=== PATIENT | female | born 1940 | race Caucasian/White ===

== ENCOUNTER → 2017-08-05 | Outpatient (CLI) | payer MEDICARE, MEDICAID | LOC: BICMAMMO 10:38 | PROVIDERS: ATTEND Obstetrics & Gynecology | DX: Z12.31 Encounter for screening mammogram for malignant neoplasm of breast (principal) | CPT/HCPCS: 77063; G0202; 77067 ==

== ENCOUNTER 2017-12-04 12:38 | Emergency (ER) | payer MEDICARE, MEDICAID ==
[2017-12-04] MEDS ORDERED: Labetalol HCl 100 MG/20 ML VIAL ONE (13:02)
[2017-12-04 13:15] LABS: #Basophils 0.1 thou/uL (0.0-0.2); #Eosinphils 0.3 thou/uL (0.0-0.7); #Monocytes 0.6 thou/uL (0.11-0.59); #Neutrophils 3.9 thou/uL (1.40-6.50); %Basophils 1.2 % (0.0-1.0); %Eosinophils 4.2 % (0.0-10.0); %Lymphocytes 38.4 % (21.0-51.0); %Monocytes 7.5 % (0.0-10.0); %Neutrophils 48.9 % (42.0-75.0); Mean Corpuscular HGB CONC 34.1 g/dL (32.0-36.0); Mean Platelet Volume 8.9 fL (7.4-10.4); Platelet Count 227 thou/uL (130-400); RBC Distribution Width 12.3 % (11.5-14.5); Red Blood Cell (RBC) Count 4.82 mill/uL (4.20-5.40); White Blood Cell (WBC) Count 7.9 thou/uL (4.8-10.8)
[2017-12-04 13:20] LABS: Prothrombin Time 13.4 SEC (12.0-14.7)
[2017-12-04 13:36] LABS: Anion Gap 15 mmol/L (10-20); BUN (Urea Nitrogen) 14 mg/dL (9.8-20.1); Calc. Creatinine Clearance 0 mL/min (70-130); Calcium 9.8 mg/dL (7.8-10.44); Carbon Dioxide 23 mmol/L (23-31); Chloride 103 mmol/L (98-107); Estimated GFR-MDRD 57; Glucose 110 mg/dL (83-110); Potassium 4.1 mmol/L (3.5-5.1); Sodium 137 mmol/L (136-145)
[2017-12-04 13:41] LABS: CKMB 0.6 ng/mL (0-6.6); Troponin I Less than 0.010 ng/mL (< 0.028)
--- NOTE | 2017-12-04 13:52 | RAD ---
CHEST 1 VIEW: Date: 12/04/17 HISTORY: 76-year-old female with hypertension, right-sided facial tingling. COMPARISON: 07/26/13. FINDINGS: Heart size is normal. Old granuloma calcifications are noted and are stable. No confluent pneumonia, overt edema, or pleural effusion. IMPRESSION: Old granulomatous disease. Stable appearing chest from prior study. No acute process. POS: C
--- NOTE | 2018-01-13 14:24 | EKG ---
Test Reason : Blood Pressure : / mmHG Vent. Rate : 087 BPM Atrial Rate : 087 BPM P-R Int : 180 ms QRS Dur : 078 ms QT Int : 368 ms P-R-T Axes : 028 017 040 degrees QTc Int : 442 ms Poor data quality, interpretation may be adversely affected Normal sinus rhythm Normal ECG Confirmed by ROBLES MENDOZA, PILO ([id number]), city editor TYREE YAN ([id number] on 01/13/2018 2:23:46 PM Referred By: Confirmed By:PILO ARBOLEDA MD
== END 2017-12-04 14:25 | disposition home or self-care (01) ==
LOC: ERS 12:38
DX: I16.0 Hypertensive urgency (principal); E03.9 Hypothyroidism, unspecified; I10 Essential (primary) hypertension; Z79.899 Other long term (current) drug therapy
CPT/HCPCS: 71045; 80048; 82553; 84484; 85025; 85610; 93005; 96374

== ENCOUNTER 2017-12-18 09:53 | Outpatient (CLI) | payer MEDICARE, MEDICAID | END 2017-12-18 09:54 | disposition home or self-care (01) | LOC: BICCT 09:53 | PROVIDERS: ATTEND Obstetrics & Gynecology | DX: G44.219 Episodic tension-type headache, not intractable (principal); Z86.79 Personal history of other diseases of the circulatory system; I10 Essential (primary) hypertension | CPT/HCPCS: 70450 ==

== ENCOUNTER 2018-08-13 09:08 | Outpatient (CLI) | payer MEDICARE, MEDICAID | END 2018-08-13 09:09 | disposition home or self-care (01) | LOC: BICMAMMO 09:08 | PROVIDERS: ATTEND Obstetrics & Gynecology | DX: Z12.31 Encounter for screening mammogram for malignant neoplasm of breast (principal) | CPT/HCPCS: 77063; 77067 ==

== ENCOUNTER 2019-08-23 10:19 | Outpatient (CLI) | payer MEDICARE ==
--- NOTE | 2019-08-23 11:21 | MMO ---
Bilateral MAMMO Bilat Screen [facility]. CLINICAL HISTORY: Patient is 78 years old and is seen for screening. The patient has a history of right Cyst Aspiration at an unknown age - benign and right Excisional Biopsy at an unknown age - benign - X2. VIEWS: The views performed were: . FILMS COMPARED: The present examination has been compared to prior imaging studies performed at [facility] [place] on 08/05/2017 and 08/13/2018. This study has been interpreted with the assistance of computer-aided detection. MAMMOGRAM FINDINGS: The breasts are heterogeneously dense, which could obscure a lesion on mammography. Benign calcifications are noted bilaterally. There are no suspicious masses, suspicious calcifications, or new areas of architectural distortion. IMPRESSION: THERE IS NO MAMMOGRAPHIC EVIDENCE OF MALIGNANCY. A ROUTINE FOLLOW-UP MAMMOGRAM IN 1 YEAR IS RECOMMENDED. THE RESULTS OF THIS EXAM WERE SENT TO THE PATIENT. ACR BI-RADS Category 2 - Benign finding MAMMOGRAPHY NOTE: 1. A negative mammogram report should not delay a biopsy if a dominant of clinically suspicious mass is present. 2. Approximately 10% to 15% of breast cancers are not detected by mammography. 3. Adenosis and dense breasts may obscure an underlying neoplasm. Reported by: JOHANA SANTANA MD Electonically Signed: [id number]
== END 2019-08-23 10:20 | disposition home or self-care (01) ==
LOC: BICMAMMO 10:19
PROVIDERS: ATTEND Physician Assistant
DX: Z12.31 Encounter for screening mammogram for malignant neoplasm of breast (principal); Z91.89 Other specified personal risk factors, not elsewhere classified
CPT/HCPCS: 77063; 77067

== ENCOUNTER 2020-12-28 10:56 | Outpatient (CLI) | payer MEDICARE, MEDICAID | END 2020-12-28 10:57 | disposition home or self-care (01) | LOC: BICRAD 10:56 | PROVIDERS: ATTEND Family Medicine | DX: M40.203 Unspecified kyphosis, cervicothoracic region (principal); M54.2 Cervicalgia; G89.29 Other chronic pain; M51.34 Other intervertebral disc degeneration, thoracic region; M47.24 Other spondylosis with radiculopathy, thoracic region | CPT/HCPCS: 71046; 72040; 72072 ==

== ENCOUNTER 2021-02-13 14:45 | Outpatient (CLI) | payer MEDICARE, MEDICAID | END 2021-02-13 14:46 | disposition home or self-care (01) | LOC: SCSMRI 14:45 | PROVIDERS: ATTEND Family Medicine | DX: M54.2 Cervicalgia (principal); G89.29 Other chronic pain; M40.203 Unspecified kyphosis, cervicothoracic region; M54.42 Lumbago with sciatica, left side; M47.816 Spondylosis without myelopathy or radiculopathy, lumbar region; M47.817 Spondylosis without myelopathy or radiculopathy, lumbosacral region; M48.02 Spinal stenosis, cervical region; M50.022 Cervical disc disorder at C5-C6 level with myelopathy; M47.12 Other spondylosis with myelopathy, cervical region | CPT/HCPCS: 72141; 72148 ==

== ENCOUNTER 2021-05-02 10:07 | Outpatient (CLI) | payer MEDICARE, MEDICAID | END 2021-05-02 10:08 | disposition home or self-care (01) | LOC: BICMAMMO 10:07 | PROVIDERS: ATTEND Family Medicine | DX: Z12.31 Encounter for screening mammogram for malignant neoplasm of breast (principal); Z13.820 Encounter for screening for osteoporosis; M85.89 Other specified disorders of bone density and structure, multiple sites | CPT/HCPCS: 77063; 77067; 77080 ==

== ENCOUNTER 2021-07-25 08:43 | Outpatient (CLI) | payer MEDICARE, MEDICAID | END 2021-07-25 08:44 | disposition home or self-care (01) | LOC: BICCT 08:43 → NM 08:44 | PROVIDERS: ATTEND Family Medicine | DX: R25.1 Tremor, unspecified (principal); G20 Parkinson's disease | CPT/HCPCS: 78803; A9584 ==

== ENCOUNTER 2022-09-11 10:01 | Outpatient (CLI) | payer OTHER, MEDICAID | END 2022-09-11 10:02 | disposition home or self-care (01) | LOC: SCSMRI 10:01 | PROVIDERS: ATTEND Psychiatry & Neurology Neurology | DX: G20 Parkinson's disease (principal); I67.82 Cerebral ischemia | CPT/HCPCS: 70551 ==

== ENCOUNTER 2023-06-29 10:40 | Outpatient (CLI) | payer OTHER, MEDICAID | END 2023-06-29 10:41 | disposition home or self-care (01) | LOC: BICMAMMO 10:40 | PROVIDERS: ATTEND Family Medicine | DX: Z12.31 Encounter for screening mammogram for malignant neoplasm of breast (principal); Z91.89 Other specified personal risk factors, not elsewhere classified | CPT/HCPCS: 77063; 77067 ==

== ENCOUNTER 2025-07-05 12:45 | Outpatient (CLI) | payer OTHER, MEDICAID | END 2025-07-05 12:46 | disposition home or self-care (01) | LOC: BICMAMMO 12:45 | PROVIDERS: ATTEND Family Medicine | DX: Z12.31 Encounter for screening mammogram for malignant neoplasm of breast (principal); Z91.89 Other specified personal risk factors, not elsewhere classified | CPT/HCPCS: 77063; 77067 ==

== ENCOUNTER 2025-07-20 10:57 | Outpatient (CLI) | payer OTHER, MEDICAID | END 2025-07-20 10:58 | disposition home or self-care (01) | LOC: SCSRAD 10:57 | PROVIDERS: ATTEND Family Medicine | DX: M25.552 Pain in left hip (principal); M54.50 Low back pain, unspecified; G89.29 Other chronic pain; M47.816 Spondylosis without myelopathy or radiculopathy, lumbar region; M47.817 Spondylosis without myelopathy or radiculopathy, lumbosacral region; M48.061 Spinal stenosis, lumbar region without neurogenic claudication; M48.07 Spinal stenosis, lumbosacral region; M16.12 Unilateral primary osteoarthritis, left hip | CPT/HCPCS: 72100 ==